=== PATIENT | female | born 1945 | race Caucasian/White ===

== ENCOUNTER 2017-10-06 10:10 | Inpatient (IN) | payer MEDICARE, OTHER, SELFPAY ==
[2017-10-06 10:13] VITALS: BP 154/49; PULSE 65; RESP 18; TEMP 36.4; O2SAT 97; BMI 41.3
--- NOTE | 2017-10-06 10:35 | MRI_ITS ---
STUDY: MRI LUMBAR SPINE WITHOUT CONTRAST REASON FOR EXAM: Female, 72 years old. back pain -- pain low back and rt leg , can't move rt leg. TECHNIQUE: Standardized fat and water weighted pulse sequences were obtained in the sagittal and axial planes. COMPARISON: None FINDINGS: T12-L1: There is mild disc space narrowing and endplate spondylosis. There is no significant disc herniation, spinal canal or foramina stenosis.. Normal lumbar lordosis. There is no substantial scoliosis. Normal conus medullaris that terminates at the L1 L1-2: There is minimal disc space narrowing and endplate spondylosis. There is no significant disc herniation, spinal canal or foramina stenosis.. There is mild facet arthropathy. L2-3: There is moderate disc space narrowing and endplate spondylosis. There is a moderate disc bulge asymmetric to the left with moderate left foraminal stenosis. There is no significant central canal or right foraminal stenosis. There is mild facet arthropathy. L3-4: There is moderate disc space narrowing and endplate spondylosis. There is a moderate disc osteophyte complex asymmetric to the right with moderate right foraminal stenosis. There is mild central canal and mild left foraminal stenosis. There is mild facet arthropathy. L4-5: There is minimal disc space narrowing and endplate spondylosis. There is a mild disc bulge and facet arthropathy with severe central canal stenosis. There is mild bilateral foraminal stenosis. L5-S1: There is a mild disc space narrowing and endplate spondylosis. There is a disc osteophyte complex asymmetric to the left with moderate left foraminal stenosis. There is moderate facet arthropathy without significant central canal or right foraminal stenosis. Normal visualized sacral ala. Normal visualized paraspinous soft tissue structures. MRI/Spine Lumbar (Routine) IMPRESSION: L2/L3: Moderate left foraminal stenosis. L3/L4: Moderate right foraminal stenosis. L4/L5: Severe central canal stenosis. L5/S1: Moderate left foraminal stenosis. Electronically Signed: Raul Craig MD at 12:31 EST Tel , Service support ,
[2017-10-06] MEDS: Ondansetron 4 MG/2 ML Vial IV (11:15)
[2017-10-06] MEDS: HYDROmorphone 1 MG/ML Syringe IV (11:18)
[2017-10-06] MEDS: LORazepam 2 MG/ML Syringe 1 MG IV (11:18)
[2017-10-06] MEDS: 0.9% Normal Saline 1,000 ML 150 ML IV (11:18)
[2017-10-06 11:36] LABS: Absolute Lymphocyte Count 1.18 X10^3/ul (0.83-4.51); Basophil# 0.03 X10^3/uL; Basophil% 0.5 % (0-1); Eosinophil# 0.19 X10^3/uL; Eosinophils% 3.1 % (0-5); Hematocrit 34.2 % (37-47); Hemoglobin 10.8 g/dl (12.0-15.0); Lymphocyte # 1.18 X10^3/ul (4.0); Mean Corp Hgb Conc 31.6 g/gl (32-36); Mean Corpuscular Hgb 30.3 pg (27.0-32.0); Mean Corpuscular Volume 95.8 fL (81-99); Mean Platelet Vol. 11.5 fl (6.2-12.0); Monocyte# 0.76 X10^3/uL; Monocyte% 12.3 % (0-10); Neutrophil # 4.03 X10^3/uL (2.7-7.7); Neutrophil % 64.9 % (47-70); Platelet Count 150 K/mm3 (150-450); RBC Distribution Width CV 13.2 % (11.6-14.6); Red Blood Count 3.57 M/mm3 (4.2-5.4); White Blood Count 6.2 K/mm3 (4.4-11.0)
[2017-10-06 11:39] LABS: POSITIVE COUNT NO; POSITIVE DIFFERENTIAL NO; POSITIVE MORPHOLOGY NO
[2017-10-06 11:46] LABS: Anion Gap 11 (5-15); BUN 47 mg/dL (7-18); BUN/Creat Ratio 20.9 RATIO (10-20); Calcium,Total 9.1 mg/dL (8.5-10.1); Chloride 108 mmol/L (98-107); Creatinine, Serum 2.25 mg/dL (0.55-1.02); EST Glomerular Filtration Rate 23 mL/min (>60); Est Glom Filt Rate - Afr Amer 28 mL/min (>60); Estimated Creatinine Clearance 21.98 ml/min; Glucose 177 mg/dL (70-110); Sodium Level 143 mmol/L (136-145)
[2017-10-06 13:00] VITALS: BP 170/64; PULSE 71; RESP 16; O2SAT 97
[2017-10-06 13:17] LABS: Bacteria 0 SEEN /hpf (None Seen); Mucous, Urine 0 SEEN /hpf (<or=2+); Red Blood Cells-Urine 0 SEEN /hpf (0-5); White Blood Cells 0 SEEN /hpf (0-5)
[2017-10-06 13:20] LABS: Color, Urine Yellow (Yellow); Glucose, Dipstick 100 mg/dl (Normal); Ketone-Dipstick Negative (Negative); Leukocyte Esterase-Dipstick Negative /ul (Negative); Nitrite-Dipstick Negative (Negative); Occult Blood-Urine 50 /ul (Negative); Protein-Dipstick 500 mg/dl (Negative); Specific Gravity, Urine 1.015 (1.002-1.030); Urine Bilirubin Dipstick Negative (Negative); Urine Clarity Sl. Cloudy (Clear); Urine Urobilinogen Normal (Normal)
[2017-10-06 13:29] LABS: Amorphous Sediment 1+; Squamous Epithelial Cells - UA 0-5 SEEN /hpf (5-10)
--- NOTE | 2017-10-06 13:29 | ED.VISSUMM ---
- ER Visit Summary Date of Service: 10/06/17 Chief Complaint: [Back pain] History of Present Illness: The patient is a 72 F [presents the emergency department she complained of back pain that started yesterday. Patient states she woke up with the pain. She describes it in her left back radiating down her left leg. Patient was seen by a chiropractor yesterday and diagnosed with sciatica. Patient states that now having a hard time moving her right leg. Patient denies weakness in the extremities. She denies change in bowel or bladder function. Patient was unable to walk on her own today and her daughter had a very difficult time getting her to the bathroom. Patient brought in by EMS. Patient does have a history of prior sciatica however she has not had prior back surgeries.] Physical Examination: [HEALONSO-PERRLAJAZZYMI. Cranial nerves II through XII grossly intact. TMs clear. Mucous membranes moist. No adenopathy. Cardiovascular-regular rate and rhythm without murmur or ectopy Lungs-clear to auscultation, chest wall stable without crepitus or subcu emphysema Abdomen-normoactive bowel sounds, soft, nontender, no rebound or rigidity, no peritoneal signs. Back exam-patient has tenderness palpation over lumbar paraspinal musculature on the left and into the left piriformis region and left buttocks. Patient has a positive straight leg raise at 30? on the left. Deep tendon reflexes are plus 2 out of 4 bilaterally at the patella and Achilles bilaterally. Patient has normal sensation to light touch. Extremities-intact ?4, normal range of motion, normal pulses, atraumatic] Test Results: [CBC with differential was unremarkable. Chemistries unremarkable. BUN was 47, creatinine 2.25. Urinalysis is pending. MRI of the lumbar spine obtained was read by radiology as L2-L3 moderate left foraminal stenosis, L3-L4 moderate right foraminal stenosis, L4-L5 severe central canal stenosis, L5-S1 moderate left foraminal stenosis] Emergency Department Course and Treatment: [Patient was medicated with Dilaudid and Zofran] Treatment Plan: [She will be admitted for pain control.] Disposition: [Admit] Impression: [Intractable back pain/sciatica Inability to ambulate] This note was generated with [employer] software. It may contain incorrect words, spelling, and punctuation that were not noted in review of the chart prior to signing ED Disposition - Plan for ED Patient: Chief Complaint: Back Referrals: Renny Huffman MD [Primary Care Provider] -
[2017-10-06 14:36] VITALS: BP 155/57; PULSE 74; RESP 16; O2SAT 92
[2017-10-06 15:20] VITALS: BMI 40.3
--- NOTE | 2017-10-06 15:23 | PCM.HP.STD ---
Problem List (1) Acute midline low back pain with sciatica Status: Acute (2) Hyperlipidemia associated with type 2 diabetes mellitus Status: Chronic (3) Hypertension, essential Status: Chronic (4) Hypothyroid Status: Chronic Qualifiers: Comment: TSH elevated at 4.98. Reports taking medication as directed. Does not miss doses. Will increase by 1/2 tablet each week, then recheck labs. (5) Controlled type 2 diabetes mellitus with chronic kidney disease, without long-term current use of insulin Status: Acute (6) Morbid obesity with BMI of 40.0-44.9, adult Status: Chronic History of Present Illness Date of Admission: 10/06/17 Chief Complaint: Acute onset of lower back pain with left-sided radiation The patient is a 72 year old F with multiple comorbidities as listed above came to ER with sudden onset of lumbar back pain that started yesterday. Her back pain is shooting down to left buttock up to left knee. She is not able to stand up or walk. She denies any chronic back pain or history of sciatica. She also has weakness of right leg and can bend it but not able to stand or walk on it. She denies fever, chills, lower urinary tract symptoms, abdominal pain or alteration of bowel habit. In ER, she had lumbar spine MRI done which shows severe central canal stenosis at L4-L5 and moderate foraminal stenosis. [] Past Medical History Past Medical History (Chronic Problems): Chronic Problems (Last Reviewed 09/30/17 @ 08:35 by Ambar Isbell) Morbid obesity with BMI of 40.0-44.9, adult (Chronic) Hyperlipidemia associated with type 2 diabetes mellitus (Chronic) Hypertension, essential (Chronic) Hypothyroid (Chronic) TSH elevated at 4.98. Reports taking medication as directed. Does not miss doses. Will increase by 1/2 tablet each week, then recheck labs. Allergies amlodipine besylate [From Norvas] Allergy (Verified 10/06/17 10:16) Unknown Sulfa (Sulfonamide Antibiotics) Allergy (Verified 10/06/17 10:16) Unknown Home Medications: Ambulatory Orders Medication Instructions Recorded Aspirin [Adult Low Dose Aspirin EC] 81 mg PO DAILY 03/12/16 Atorvastatin Calcium [Lipitor] 10 mg PO QHS 03/12/16 Ergocalciferol [Vitamin D] 50,000 unit PO QMONTH 03/12/16 Furosemide [Lasix] 40 mg PO BID 03/12/16 Lorazepam [Ativan] 1 mg PO DAILY 03/12/16 Losartan Potassium [Cozaar] 100 mg PO DAILY 03/12/16 Magnesium Oxide [Mag-Ox 400] 400 mg PO BID 03/12/16 Metoprolol Tartrate [Lopressor 100 mg PO BID 03/12/16 (Beta Litzy)] blood sugar diagnostic strips See Dose Instructions .ROUTE 09/22/17 .MEDSUPPLY #20 ea insulin aspart 100 unit/mL 32 unit SC TID ml 09/22/17 subcutaneous pen insulin detemir 100 unit/mL (3 mL) 27 unit SC QHS ml 09/22/17 subcutaneous pen Levothyroxine [Synthroid] 137 mcg PO DAILY 10/06/17 Smoking Status: Former smoker - *Family History Paternal Family History: Family History (Last Reviewed 09/30/17 @ 08:35 by Ambar Isbell) Father Diabetes Mother CVA (cerebral vascular accident) Throat cancer Brother CAD (coronary artery disease) Myocardial infarction Diabetes Sister Kidney disease Diabetes Myocardial infarction Bright's disease Unknown Kidney disease History Items: No pertinent history Review of Systems Constitutional: Reports: Weakness, Fatigue. Denies: Chills, Fever, Weight Change HEENT: Denies: Head Aches, Sinus Congestion, Sinus Drainage Cardiovascular: Denies: Chest Pain, Palpitations Respiratory: Denies: Cough, Shortness of breath at rest, Sputum production Gastrointestinal: Denies: Abdominal Pain, Nausea, Vomiting Genitourinary: Denies: Dysuria Musculoskeletal: Reports: Joint Pain, Joint stiffness, Joint Tenderness, Leg Pain, Muscle pain Skin: Denies: Rash, Wounds Neurological: Reports: Balance problems. Denies: Focal weakness, Numbness, Tingling Psychiatric: Denies: Anxiety, Depression, Homicidal Ideations, Suicidal Ideations Hematologic/ Lymphatic: Denies: Easy Bruising, Easy Bleeding VTE Information - Inpt Only VTE Present on Admission: No VTE Mechan Device Prophylaxis: SCD's VTE Pharm Prophylaxis ordered?: Yes Patient Problems: Active and Suspected Problems (Last Reviewed 09/30/17 @ 08:35 by Ambar Isbell) Acute midline low back pain with sciatica (Acute) - Physical Exam General: Alert, Oriented x3, Cooperative HEENT: Atraumatic, PERRLA, EOMI, Normocephalic Oral: Moist Mucosa Neck: Supple, No JVD, Negative Carotid Bruits Lungs: Clear to auscultation, No rhonchi, No wheeze, No rales, Diminished Cardiovascular: Regular rate, Regular Rhythm, Normal S1, Normal S2, No murmurs Abdomen: Bowel Sounds Present, Soft, Non Tender, Non-Distended Extremities: Capillary Refill Less than 3 Seconds, Edema Skin: No rashes, No breakdown Musculoskeletal: Arthritic Changes, Tenderness - Tenderness present over left lower lumbar spine and parasacral region. Muscle strength is 3/5 in both lower extremities. Sacral region Neurological: Cranial nerves II-XII grossly intact, Sensory exam intact to light touch and pain, - - Deep tendon reflex 2/4 and symmetrical at knees and ankle joint Psych/Mental Status: Normal Affect, Appropriate Vital Signs Temp Pulse Resp BP Pulse Ox 97.6 F L 74 16 155/57 H 92 10/06/17 10:13 10/06/17 14:36 10/06/17 14:36 10/06/17 14:36 10/06/17 14:36 Assessment/Plan Active and Suspected Problems (Last Reviewed 09/30/17 @ 08:35 by Ambar Isbell) Acute midline low back pain with sciatica (Acute) The patient is a 72 year old F with multiple comorbidities as listed above came to ER with sudden onset of lumbar back pain that started yesterday. Her back pain is shooting down to left buttock up to left knee. She is not able to stand up or walk. She denies any chronic back pain or history of sciatica. She also has weakness of right leg and can bend it but not able to stand or walk on it. She denies fever, chills, lower urinary tract symptoms, abdominal pain or alteration of bowel habit. In ER, she had lumbar spine MRI done which shows severe central canal stenosis at L4-L5 and moderate foraminal stenosis. 1. Acute onset of left-sided lumbar spine back pain with sciatica on left lower extremity, most probably due to degenerative joint disease and severe central canal stenosis: Patient is being admitted [facility] floor for pain control and functional debility. Pain control. Muscle relaxant. PT and OT ordered. Patient might need SNF placement if there is no improvement. 2. Diabetes mellitus type 2, uncontrolled: Accu-Chek before meals and at bedtime and cover with NovoLog sliding scale. 3. CKD stage IV: Her baseline creatinine runs between 2.16-2.28. Currently creatinine is 2.25 with estimated GFR 21 mL/min. avoid nephrotoxic medications. On IV fluid normal saline. 4. Other comorbidities include hypothyroidism, hypertension, dyslipidemia, morbid obesity: BMI is 40 with 257 pounds. Weight loss counseling and physical therapy commended. DVT prophylaxis: On Lovenox 30 mg subcu daily and bilateral SCDs. CODE STATUS: Patient has living will at her home. She also claimed that she has living will in our medical record but I cannot find it. She is not sure about the CODE STATUS right now. Patient was advised to get a copy of her living will from home. About 15 minutes time spent in explaining the CODE STATUS. Clinical Impression(s) from Imaging Studies Lumbar Spine MRI 10/06/17 10:35 IMPRESSION: L2/L3: Moderate left foraminal stenosis. L3/L4: Moderate right foraminal stenosis. L4/L5: Severe central canal stenosis. L5/S1: Moderate left foraminal stenosis. Electronically Signed: Raul Craig MD at 12:31 EST Tel , Service support , Laboratory Results 10/06/17 11:23: WBC 6.2, RBC 3.57 L, Hgb 10.8 L, Hct 34.2 L, MCV 95.8, MCH 30.3, MCHC 31.6 L, RDW 13.2, RDW Differential 46.0 H, Plt Count 150, MPV 11.5, Immature Gran % (Auto) 0.200, Neut % (Auto) 64.9, Lymph % (Auto) 19.0, [place] % (Auto) 12.3 H, Eos % (Auto) 3.1, Baso % (Auto) 0.5, Absolute Neuts (auto) 4.0, Absolute Lymphs (auto) 1.18, Total Counted Not Reportable 10/06/17 11:23: Sodium 143, Potassium 4.0, Chloride 108 H, Carbon Dioxide 24.0, Anion Gap 11, BUN 47 H, Creatinine 2.25 H, Estim Creat Clear Calc 21.98, Est GFR (MDRD) Af Amer 28 L, Est GFR (MDRD) Non-Af 23 L, BUN/Creatinine Ratio 20.9 H, Glucose 177 H, Calcium 9.1 10/06/17 13:03: Urine Color Yellow, Urine Clarity Sl. Cloudy, Urine pH 6.0, Ur Specific [place] 1.015, Urine Protein 500 H, Urine Glucose (UA) 100 H, Urine Ketones Negative, Urine Occult Blood 50 H, Urine Nitrite Negative, Urine Bilirubin Negative, Urine Urobilinogen Normal, Ur Leukocyte Esterase Negative, Urine RBC 0 SEEN, Urine WBC 0 SEEN, Ur Squamous Epith Cells 0-5 SEEN, Amorphous Sediment 1+, Urine Bacteria 0 SEEN, Urine Mucus 0 SEEN Code Visit Inpatient E&M: 77346 Init Hosp L3 Procedures: 62363 Advncd Care Plan 30 Min
[2017-10-06 15:28] VITALS: BP 165/57; PULSE 66; RESP 18; TEMP 36.9; O2SAT 94
--- NOTE | 2017-10-06 15:41 | HP.PCM_ITS ---
Problem List (1) Acute midline low back pain with sciatica Status: Acute (2) Hyperlipidemia associated with type 2 diabetes mellitus Status: Chronic (3) Hypertension, essential Status: Chronic (4) Hypothyroid Status: Chronic Qualifiers: Comment: TSH elevated at 4.98. Reports taking medication as directed. Does not miss doses. Will increase by 1/2 tablet each week, then recheck labs. (5) Controlled type 2 diabetes mellitus with chronic kidney disease, without long-term current use of insulin Status: Acute (6) Morbid obesity with BMI of 40.0-44.9, adult Status: Chronic History of Present Illness Date of Admission: 10/06/17 Chief Complaint: Acute onset of lower back pain with left-sided radiation The patient is a 72 year old F with multiple comorbidities as listed above came to ER with sudden onset of lumbar back pain that started yesterday. Her back pain is shooting down to left buttock up to left knee. She is not able to stand up or walk. She denies any chronic back pain or history of sciatica. She also has weakness of right leg and can bend it but not able to stand or walk on it. She denies fever, chills, lower urinary tract symptoms, abdominal pain or alteration of bowel habit. In ER, she had lumbar spine MRI done which shows severe central canal stenosis at L4-L5 and moderate foraminal stenosis. [] Past Medical History Past Medical History (Chronic Problems): Chronic Problems (Last Reviewed 09/30/17 @ 08:35 by Ambar Isbell) Morbid obesity with BMI of 40.0-44.9, adult (Chronic) Hyperlipidemia associated with type 2 diabetes mellitus (Chronic) Hypertension, essential (Chronic) Hypothyroid (Chronic) TSH elevated at 4.98. Reports taking medication as directed. Does not miss doses. Will increase by 1/2 tablet each week, then recheck labs. Allergies amlodipine besylate [From Norvas] Allergy (Verified 10/06/17 10:16) Unknown Sulfa (Sulfonamide Antibiotics) Allergy (Verified 10/06/17 10:16) Unknown Home Medications: Ambulatory Orders Medication Instructions Recorded Aspirin [Adult Low Dose Aspirin EC] 81 mg PO DAILY 03/12/16 Atorvastatin Calcium [Lipitor] 10 mg PO QHS 03/12/16 Ergocalciferol [Vitamin D] 50,000 unit PO QMONTH 03/12/16 Furosemide [Lasix] 40 mg PO BID 03/12/16 Lorazepam [Ativan] 1 mg PO DAILY 03/12/16 Losartan Potassium [Cozaar] 100 mg PO DAILY 03/12/16 Magnesium Oxide [Mag-Ox 400] 400 mg PO BID 03/12/16 Metoprolol Tartrate [Lopressor 100 mg PO BID 03/12/16 (Beta Litzy)] blood sugar diagnostic strips See Dose Instructions .ROUTE 09/22/17 .MEDSUPPLY #20 ea insulin aspart 100 unit/mL 32 unit SC TID ml 09/22/17 subcutaneous pen insulin detemir 100 unit/mL (3 mL) 27 unit SC QHS ml 09/22/17 subcutaneous pen Levothyroxine [Synthroid] 137 mcg PO DAILY 10/06/17 Smoking Status: Former smoker - *Family History Paternal Family History: Family History (Last Reviewed 09/30/17 @ 08:35 by Ambar Isbell) Father Diabetes Mother CVA (cerebral vascular accident) Throat cancer Brother CAD (coronary artery disease) Myocardial infarction Diabetes Sister Kidney disease Diabetes Myocardial infarction Bright's disease Unknown Kidney disease History Items: No pertinent history Review of Systems Constitutional: Reports: Weakness, Fatigue. Denies: Chills, Fever, Weight Change HEENT: Denies: Head Aches, Sinus Congestion, Sinus Drainage Cardiovascular: Denies: Chest Pain, Palpitations Respiratory: Denies: Cough, Shortness of breath at rest, Sputum production Gastrointestinal: Denies: Abdominal Pain, Nausea, Vomiting Genitourinary: Denies: Dysuria Musculoskeletal: Reports: Joint Pain, Joint stiffness, Joint Tenderness, Leg Pain, Muscle pain Skin: Denies: Rash, Wounds Neurological: Reports: Balance problems. Denies: Focal weakness, Numbness, Tingling Psychiatric: Denies: Anxiety, Depression, Homicidal Ideations, Suicidal Ideations Hematologic/ Lymphatic: Denies: Easy Bruising, Easy Bleeding VTE Information - Inpt Only VTE Present on Admission: No VTE Mechan Device Prophylaxis: SCD's VTE Pharm Prophylaxis ordered?: Yes Patient Problems: Active and Suspected Problems (Last Reviewed 09/30/17 @ 08:35 by Ambar Isbell ) Acute midline low back pain with sciatica (Acute) - Physical Exam General: Alert, Oriented x3, Cooperative HEENT: Atraumatic, PERRLA, EOMI, Normocephalic Oral: Moist Mucosa Neck: Supple, No JVD, Negative Carotid Bruits Lungs: Clear to auscultation, No rhonchi, No wheeze, No rales, Diminished Cardiovascular: Regular rate, Regular Rhythm, Normal S1, Normal S2, No murmurs Abdomen: Bowel Sounds Present, Soft, Non Tender, Non-Distended Extremities: Capillary Refill Less than 3 Seconds, Edema Skin: No rashes, No breakdown Musculoskeletal: Arthritic Changes, Tenderness - Tenderness present over left lower lumbar spine and parasacral region. Muscle strength is 3/5 in both lower extremities. Sacral region Neurological: Cranial nerves II-XII grossly intact, Sensory exam intact to light touch and pain, - - Deep tendon reflex 2/4 and symmetrical at knees and ankle joint Psych/Mental Status: Normal Affect, Appropriate Vital Signs Temp Pulse Resp BP Pulse Ox 97.6 F L 74 16 155/57 H 92 10/06/17 10:13 10/06/17 14:36 10/06/17 14:36 10/06/17 14:36 10/06/17 14:36 Assessment/Plan Active and Suspected Problems (Last Reviewed 09/30/17 @ 08:35 by Ambar Isbell ) Acute midline low back pain with sciatica (Acute) The patient is a 72 year old F with multiple comorbidities as listed above came to ER with sudden onset of lumbar back pain that started yesterday. Her back pain is shooting down to left buttock up to left knee. She is not able to stand up or walk. She denies any chronic back pain or history of sciatica. She also has weakness of right leg and can bend it but not able to stand or walk on it. She denies fever, chills, lower urinary tract symptoms, abdominal pain or alteration of bowel habit. In ER, she had lumbar spine MRI done which shows severe central canal stenosis at L4-L5 and moderate foraminal stenosis. 1. Acute onset of left-sided lumbar spine back pain with sciatica on left lower extremity, most probably due to degenerative joint disease and severe central canal stenosis: Patient is being admitted on the [facility] floor for pain control and functional debility. Pain control. Muscle relaxant. PT and OT ordered. Patient might need SNF placement if there is no improvement. 2. Diabetes mellitus type 2, uncontrolled: Accu-Chek before meals and at bedtime and cover with NovoLog sliding scale. 3. CKD stage IV: Her baseline creatinine runs between 2.16-2.28. Currently creatinine is 2.25 with estimated GFR 21 mL/min. avoid nephrotoxic medications. On IV fluid normal saline. 4. Other comorbidities include hypothyroidism, hypertension, dyslipidemia, morbid obesity: BMI is 40 with 257 pounds. Weight loss counseling and physical therapy commended. DVT prophylaxis: On Lovenox 30 mg subcu daily and bilateral SCDs. CODE STATUS: Patient has living will at her home. She also claimed that she has living will in our medical record but I cannot find it. She is not sure about the CODE STATUS right now. Patient was advised to get a copy of her living will from home. About 15 minutes time spent in explaining the CODE STATUS. Clinical Impression(s) from Imaging Studies Lumbar Spine MRI 10/06/17 10:35 IMPRESSION: L2/L3: Moderate left foraminal stenosis. L3/L4: Moderate right foraminal stenosis. L4/L5: Severe central canal stenosis. L5/S1: Moderate left foraminal stenosis. Electronically Signed: Raul Craig MD at 12:31 EST Tel , Service support , Laboratory Results 10/06/17 11:23: WBC 6.2, RBC 3.57 L, Hgb 10.8 L, Hct 34.2 L, MCV 95.8, MCH 30.3 , MCHC 31.6 L, RDW 13.2, RDW Differential 46.0 H, Plt Count 150, MPV 11.5, Immature Gran % (Auto) 0.200, Neut % (Auto) 64.9, Lymph % (Auto) 19.0, [place] % ( Auto) 12.3 H, Eos % (Auto) 3.1, Baso % (Auto) 0.5, Absolute Neuts (auto) 4.0, Absolute Lymphs (auto) 1.18, Total Counted Not Reportable 10/06/17 11:23: Sodium 143, Potassium 4.0, Chloride 108 H, Carbon Dioxide 24.0, Anion Gap 11, BUN 47 H, Creatinine 2.25 H, Estim Creat Clear Calc 21.98, Est GFR (MDRD) Af Amer 28 L, Est GFR (MDRD) Non-Af 23 L, BUN/Creatinine Ratio 20.9 H , Glucose 177 H, Calcium 9.1 10/06/17 13:03: Urine Color Yellow, Urine Clarity Sl. Cloudy, Urine pH 6.0, Ur Specific [place] 1.015, Urine Protein 500 H, Urine Glucose (UA) 100 H, Urine Ketones Negative, Urine Occult Blood 50 H, Urine Nitrite Negative, Urine Bilirubin Negative, Urine Urobilinogen Normal, Ur Leukocyte Esterase Negative, Urine RBC 0 SEEN, Urine WBC 0 SEEN, Ur Squamous Epith Cells 0-5 SEEN, Amorphous Sediment 1+, Urine Bacteria 0 SEEN, Urine Mucus 0 SEEN Code Visit Inpatient E&M: 47712 Init Hosp L3 Procedures: 71568 Advncd Care Plan 30 Min
[2017-10-06 17:01] LABS: Bedside Glucose 141 mg/dL (70-110)
[2017-10-06] MEDS: 0.9% Normal Saline 1,000 ML 100 ML IV (19:08)
[2017-10-06 20:46] VITALS: BP 185/66; PULSE 76; RESP 16; TEMP 37.1; O2SAT 95
[2017-10-06 20:54] VITALS: BP 185/66; PULSE 76
[2017-10-06] MEDS: Magnesium Oxide 400 MG Tablet PO (20:54)
[2017-10-06] MEDS: Atorvastatin Calcium 10 MG Tablet PO (20:54)
[2017-10-06] MEDS: Metoprolol Tartrate 100 MG Tablet PO (20:54)
[2017-10-06] MEDS: Enoxaparin 30 MG/0.3 ML Syringe SC (20:55)
[2017-10-06] MEDS: oxyCODONE 5 MG Tablet PO (21:01)
[2017-10-06] MEDS: LORazepam 1 MG Tablet PO (21:05)
[2017-10-06 21:51] LABS: Bedside Glucose 258 mg/dL (70-110)
[2017-10-07] VITALS (9 sets, daily range): BP systolic 130–189; BP diastolic 50–80; PULSE 64–85; RESP 16–18; TEMP 36.6–37.3; O2SAT 96–98
[2017-10-07] MEDS: oxyCODONE 5 MG Tablet PO ×4 (03:33→22:38)
[2017-10-07] MEDS: Levothyroxine 137 MCG Tablet PO (03:34)
[2017-10-07 07:10] LABS: Anion Gap 10 (5-15); BUN 41 mg/dL (7-18); BUN/Creat Ratio 18.1 RATIO (10-20); Calcium,Total 8.4 mg/dL (8.5-10.1); Chloride 106 mmol/L (98-107); Creatinine, Serum 2.26 mg/dL (0.55-1.02); EST Glomerular Filtration Rate 23 mL/min (>60); Est Glom Filt Rate - Afr Amer 27 mL/min (>60); Estimated Creatinine Clearance 21.88 ml/min; Glucose 167 mg/dL (70-110); Potassium 3.8 mmol/L (3.5-5.1); Sodium Level 140 mmol/L (136-145)
[2017-10-07] MEDS: Losartan Potassium 100 MG Tablet PO (10:02)
[2017-10-07] MEDS: Aspirin E.C. 81 MG Tablet PO (10:02)
[2017-10-07] MEDS: Magnesium Oxide 400 MG Tablet PO ×2 (10:03→22:34)
[2017-10-07] MEDS: Furosemide 40 MG Tablet PO (10:03)
[2017-10-07] MEDS: Metoprolol Tartrate 100 MG Tablet PO ×2 (10:03→22:30)
[2017-10-07] MEDS: Enoxaparin 30 MG/0.3 ML Syringe SC (10:10)
[2017-10-07 11:16] LABS: Bedside Glucose 178 mg/dL (70-110)
[2017-10-07 12:11] LABS: Bedside Glucose 136 mg/dL (70-110)
--- NOTE | 2017-10-07 15:09 | CASEMGMT ---
JAMAL SWEENEY Face to Face with patient for initial transition planning/care coordination assessment. RN PATEL introduced self and role at [facility]. Patient sitting in chair, alert and oriented. Patient willing to participate in assessment and is able to answer all questions appropriately. Care providers, pharmacy, and demographics verified. See link attached. Patient wishes to discharge home. Discussed possible HHC and explained to patient that we will monitor how she does with therapy. Patient states she has no further needs or concerns at this time. CM to follow for discharge planning needs that may arise. Disposition Plan: Patient to discharge home with family support and follow-up plans. Will continue to monitor for need for HHC.
--- NOTE | 2017-10-07 15:53 | PN_ITS ---
<Santos Smith - Last Filed: 10/07/17 15:43> Patient Problems: Active and Suspected Problems (Last Reviewed 09/30/17 @ 08:35 by Ambar Isbell ) Acute midline low back pain with sciatica (Acute) Subjective: Pt has had no improvement in pain. She feels occasional back muscle spasms. Pain radiates from LL back down the left hip, into lateral leg terminating at the left knee. She denies any inciting activity or trauma. She woke up with the pain. She is not interested in pain management or injections. She was able to get on her feet and walk. No change in continence, no saddle paraesthesias. No numbness or tingling in her LE. - Physical Exam General: Alert, Oriented x3, Cooperative HEENT: Atraumatic, PERRLA, EOMI, Normocephalic Neck: Supple, No JVD, Negative Carotid Bruits Lungs: Clear to auscultation, Normal air movement Cardiovascular: Regular rate, No murmurs Abdomen: Bowel Sounds Present, Soft, Non Tender, Obese Extremities: No edema, Capillary Refill Less than 3 Seconds Skin: No rashes, No breakdown Musculoskeletal: No Tenderness to Palpation of Joints or Extremities Neurological: Cranial nerves II-XII grossly intact Psych/Mental Status: Normal Affect, Appropriate Vital Signs Temp Pulse Resp BP Pulse Ox 99.2 F H 85 18 140/80 H 96 10/07/17 09:30 10/07/17 10:03 10/07/17 09:30 10/07/17 09:30 10/07/17 09:30 Oxygen Delivery Method CPAP Weight: 116.8 kg Body Mass Index (BMI) 40.3 Intake and Output for Last 24 Hours 10/05/17 10/06/17 10/07/17 23:59 23:59 23:59 Intake Total 756 / 756 Balance 756 / 756 Laboratory Tests Past 24 Hrs 10/07/17 05:56 Sodium 140 Potassium 3.8 Chloride 106 Carbon Dioxide 24.0 Anion Gap 10 BUN 41 H Creatinine 2.26 H Estim Creat Clear Calc 21.88 Est GFR (MDRD) Af Amer 27 L Est GFR (MDRD) Non-Af 23 L BUN/Creatinine Ratio 18.1 Glucose 167 H Calcium 8.4 L POC Glucose 10/07/17 10/07/17 10/06/17 12:04 10:01 21:07 POC Glucose 136 H 178 H 258 H 10/06/17 16:51 POC Glucose 141 H Assessment/Plan Active and Suspected Problems (Last Reviewed 09/30/17 @ 08:35 by Ambar Isbell ) Acute midline low back pain with sciatica (Acute) 1. Intractable lower back pain with radiculopathy likely 2/2 L4/L5 severe central canal stenosis. Will add muscle relaxer and steroids. Continue PTOT. No symptoms concerning for cauda equina. 2. CKD stage III-IV - IV fluids. Appears to be at baseline. Trend. No NSAIDS. 3. Hypothyroidism - continue synthroid. 4. T2DM - add SSI. continue home regimen and adjust as needed. 5. HTN - elevated - possibly 2/2 severe pain. 6. Morbid obesity - complicating #1. DVT ppx: SCDs DC planning: re-eval in AM. PTOT suggests further skilled. This patient was seen by Santos Smith PA-C under the supervision of Doctor Sandee. <Nicole Ignacio - Last Filed: 10/07/17 17:17> - Physical Exam Vital Signs Temp Pulse Resp BP Pulse Ox 99.1 F 65 18 135/80 H 97 10/07/17 15:30 10/07/17 15:30 10/07/17 15:30 10/07/17 15:30 10/07/17 15:30 Oxygen Delivery Method Room Air Weight: 116.8 kg Body Mass Index (BMI) 40.3 Intake and Output for Last 24 Hours 10/05/17 10/06/17 10/07/17 23:59 23:59 23:59 Intake Total 756 / 756 Balance 756 / 756 Laboratory Tests Past 24 Hrs 10/07/17 05:56 Sodium 140 Potassium 3.8 Chloride 106 Carbon Dioxide 24.0 Anion Gap 10 BUN 41 H Creatinine 2.26 H Estim Creat Clear Calc 21.88 Est GFR (MDRD) Af Amer 27 L Est GFR (MDRD) Non-Af 23 L BUN/Creatinine Ratio 18.1 Glucose 167 H Calcium 8.4 L POC Glucose 10/07/17 10/07/17 10/07/17 16:07 12:04 10:01 POC Glucose 142 H 136 H 178 H 10/06/17 21:07 POC Glucose 258 H Assessment/Plan Patient was seen and examined independently of PA, history, physical exam and assessment as noted above. MRI and imaging reviewed. Labs reviewed and show stable CKD stage IV. Encourage patient to ambulate, continue to work with physical therapy. Meds reviewed, possible discharge in a.m. if improved Code Visit Inpatient E&M: 93323 Subs Hosp L2
[2017-10-07 16:11] LABS: Bedside Glucose 142 mg/dL (70-110)
--- NOTE | 2017-10-07 16:25 | CHAPLAIN ---
Type of Pastoral Visit _x__ Initial Visit ___ Follow-up Visit ___ On-call Visit ___ General Patient Visit ___ Spiritual Assessment ___ Family Conference ___ Bereavement ___ Rapid Response ___ Code Blue ___ Other (describe below) Pastoral Care Referral From _x__ Patient ___ Family ___ Nurse ___ Physician ___ Bicycle Service Technician ___ Parts Department Manager ___ Other (describe below) Sacrament/Intervention _x__ Active listening ___ Anointing ___ Yazidi ___ Bereavement ___ Communion ___ Radha exploration ___ ___ Life review _x__ Prayer ___ Reconciliation ___ Sacrament of Sick ___ Supportive presence ___ Wedding ___ Other (describe below) Pastoral Comments
[2017-10-07] MEDS: Atorvastatin Calcium 10 MG Tablet PO (22:30)
[2017-10-07] MEDS: LORazepam 1 MG Tablet PO (22:34)
[2017-10-07 22:36] LABS: Bedside Glucose 200 mg/dL (70-110)
[2017-10-08] MEDS: Levothyroxine 137 MCG Tablet PO (07:09)
[2017-10-08 07:16] VITALS: BP 140/68; PULSE 92; RESP 16; TEMP 36.6; O2SAT 96
[2017-10-08 07:20] LABS: Bedside Glucose 165 mg/dL (70-110)
[2017-10-08 07:47] VITALS: BP 130/70; PULSE 55; RESP 16; TEMP 36.4; O2SAT 100
[2017-10-08] MEDS: oxyCODONE 5 MG Tablet PO ×2 (08:23→12:28)
[2017-10-08] MEDS: Aspirin E.C. 81 MG Tablet PO (08:23)
--- NOTE | 2017-10-08 09:16 | CASEMGMT ---
Addendum entered by Chiqui Paniagua 10/08/17 09:44: JAMAL SWEENEY spoke with patient regarding HHC. Patient states she prefers [facility]. JAMAL SWEENEY will obtain script for FWW and assist with obtaining FWW for patient from [facility] patient's preferred DME company. Referral made to [facility]. JAMAL SWEENEY will continue to follow patient and plan for a safe discharge. Original Note: Patient up in hallway working with therapy. Therapy suggesting home with HHC. JAMAL SWEENEY will follow-up with patient for preference for HHC company and initiate referral.
[2017-10-08] MEDS: Furosemide 40 MG Tablet PO (09:48)
[2017-10-08] MEDS: Magnesium Oxide 400 MG Tablet PO (09:48)
[2017-10-08] MEDS: Enoxaparin 30 MG/0.3 ML Syringe SC (09:50)
[2017-10-08 09:58] VITALS: PULSE 55
[2017-10-08 11:21] VITALS: BP 130/70; PULSE 56
[2017-10-08] MEDS: Metoprolol Tartrate 100 MG Tablet PO (11:21)
[2017-10-08] MEDS: Losartan Potassium 100 MG Tablet PO (11:23)
[2017-10-08 11:36] LABS: Bedside Glucose 136 mg/dL (70-110)
--- NOTE | 2017-10-08 11:55 | DCINST_ITS ---
- Discharge Diagnoses Current Active Problems: Current Active and Chronic Problems (Last Reviewed 09/30/17 @ 08:35 by Ambar Isbell) Acute midline low back pain with sciatica (Acute) Morbid obesity with BMI of 40.0-44.9, adult (Chronic) You will use the following diet at home:: Calorie/Carbohydrate Controlled ( specify 1200, 1400, etc) - 1800 [place] / day, Cardiac Your food should be the consistency of: Regular Your liquids should be the consistency of: Regular/Thin Discharge Activity: Return to Normal Activity Allergies/Adverse Reactions: Allergies amlodipine besylate [From [facility]] Allergy (Verified 10/06/17 10:16) Unknown Sulfa (Sulfonamide Antibiotics) Allergy (Verified 10/06/17 10:16) Unknown Medications to take at Discharge Aspirin [Adult Low Dose Aspirin EC] 81 mg PO DAILY 03/12/16 Atorvastatin Calcium [Lipitor] 10 mg PO QHS 03/12/16 Ergocalciferol [Vitamin D] 50,000 unit PO QMONTH 03/12/16 Furosemide [Lasix] 40 mg PO BID 03/12/16 Lorazepam [Ativan] 1 mg PO DAILY 03/12/16 Losartan Potassium [Cozaar] 100 mg PO DAILY 03/12/16 Magnesium Oxide [Mag-Ox 400] 400 mg PO BID 03/12/16 Metoprolol Tartrate [Lopressor (beta francisco)] 100 mg PO BID 03/12/16 insulin aspart 100 unit/mL subcutaneous pen 32 unit SC TIDCM ml 09/22/17 insulin detemir 100 unit/mL (3 mL) subcutaneous pen 27 unit SC QHS ml 09/22/17 Levothyroxine [Synthroid] 137 mcg PO DAILY 10/06/17 Cyclobenzaprine [Flexeril] 10 mg PO TID PRN PRN #15 tab 10/08/17 Oxycodone [Oxyir] 5 mg PO Q6H PRN PRN #12 tablet 10/08/17 Prednisone 10 mg PO DAILY #26 tab 10/08/17 The following prescriptions were given: Cyclobenzaprine [Flexeril] 10 mg PO TID PRN PRN #15 tab PRN Reason: Muscle Spasm Oxycodone [Oxyir] 5 mg PO Q6H PRN PRN #12 tablet PRN Reason: Severe Pain (6-06/22) Prednisone 10 mg PO DAILY #26 tab Primary Care Physician: Renny Huffman MD [Primary Care Provider] - Please follow up with your Primary Care Physician in: 1 week Proposed Discharge Date: 10/08/17
--- NOTE | 2017-10-08 12:33 | NURSING ---
I held Pts BP medication because her HR was 55 until I checked with DR. DR Ignacio Okayed administration of BP medications.
[2017-10-08 13:07] VITALS: BP 138/68; PULSE 61; RESP 18; TEMP 36.5; O2SAT 99
--- NOTE | 2017-10-08 14:16 | DS.PCM_ITS ---
Discharge Date and Diagnosis - Problem List Patient Problems: Active and Suspected Problems (Last Reviewed 09/30/17 @ 08:35 by Ambar Isbell ) Acute midline low back pain with sciatica (Acute) Date of Admission: 10/06/17 Date of Discharge: 10/08/17 - Primary Discharge Diagnosis Active and Suspected Problems (Last Reviewed 09/30/17 @ 08:35 by Ambar Isbell ) Intractable lower back pain with radiculopathy 2/2 L4/L5 severe spinal stenosis Debility 2/2 above CKDIII/IV HTN DMt2 Morbid obesity - Secondary Discharge Diagnosis Chronic Problems (Last Reviewed 09/30/17 @ 08:35 by Ambar Isbell) Morbid obesity with BMI of 40.0-44.9, adult (Chronic) Hyperlipidemia associated with type 2 diabetes mellitus (Chronic) Hypertension, essential (Chronic) Hypothyroid (Chronic) TSH elevated at 4.98. Reports taking medication as directed. Does not miss doses. Will increase by 1/2 tablet each week, then recheck labs. Hospital Course and Treatment Imaging Results: MRI/Spine Lumbar (Routine) IMPRESSION: L2/L3: Moderate left foraminal stenosis. L3/L4: Moderate right foraminal stenosis. L4/L5: Severe central canal stenosis. L5/S1: Moderate left foraminal stenosis. Operations: None Procedures: None Summary of Care Provided: Physical exam on day of discharge: General: Resting comfortably NAD Psych: A/Ox3 normal affect HEENT: PEARRLA AT NC Neck: Supple NT CV: RRR no m/t/r/g/h Resp: CTA Abd: [id number] Soft NT no guarding or rigidity Ext: DP2+= no edema Skin: W/D normal turgor Lymph/Heme: No active bleeding or adenopathy Neuro: CN2-12 intact Hospital course: The patient is a 72 year old F who presented to the emergency room with severe intractable left lower back pain that radiated down the lateral aspect of her left hip terminating at the knee. She woke up with the pain and denied any inciting trauma or injury. She was initially unable to stand or walk. She has no numbness or tingling in her lower extremities. She had no saddle paresthesias or change in continence. She was able to ambulate with difficulty and severe pain. She is admitted for pain control. She was started on muscle relaxers as she reported muscle spasms as well as a prednisone and oxycodone. She has significant pain relief following these additional medications. She was able to get up and stand, and walk with help of a walker. She was seen by PT OT and they recommended further skilled however she did not desire placement at this time. She is discharged home with home care she has help at home and was ordered for home skilled therapy. She should follow-up with her PCP in 1-2 weeks. She is discharged home with home care in stable condition. This patient was seen by Santos Smith PA-C under the supervision of Doctor Ignacio. [] Discharge Diet: Low fat/ Low Cholesterol, 1800 Calorie Control Diet, 4000 mg Sodium Diet Discharge Activity: Return to Normal Activity Home Medications: Medications to take at Discharge Aspirin [Adult Low Dose Aspirin EC] 81 mg PO DAILY 03/12/16 Atorvastatin Calcium [Lipitor] 10 mg PO QHS 03/12/16 Ergocalciferol [Vitamin D] 50,000 unit PO QMONTH 03/12/16 Furosemide [Lasix] 40 mg PO BID 03/12/16 Lorazepam [Ativan] 1 mg PO DAILY 03/12/16 Losartan Potassium [Cozaar] 100 mg PO DAILY 03/12/16 Magnesium Oxide [Mag-Ox 400] 400 mg PO BID 03/12/16 Metoprolol Tartrate [Lopressor (beta francisco)] 100 mg PO BID 03/12/16 insulin aspart 100 unit/mL subcutaneous pen 32 unit SC TIDCM ml 09/22/17 insulin detemir 100 unit/mL (3 mL) subcutaneous pen 27 unit SC QHS ml 09/22/17 Levothyroxine [Synthroid] 137 mcg PO DAILY 10/06/17 Cyclobenzaprine [Flexeril] 10 mg PO TID PRN PRN #15 tab 10/08/17 Oxycodone [Oxyir] 5 mg PO Q6H PRN PRN #12 tab 10/08/17 Prednisone 10 mg PO DAILY #26 tab 10/08/17 Following Prescrptions Were Given to Patient: Cyclobenzaprine [Flexeril] 10 mg PO TID PRN PRN #15 tab PRN Reason: Muscle Spasm Oxycodone [Oxyir] 5 mg PO Q6H PRN PRN #12 tab PRN Reason: Severe Pain (6-10/10) Prednisone 10 mg PO DAILY #26 tab Primary Care Physician: Renny Huffman MD [Primary Care Provider] - Please follow up with your Primary Care Physician in: 1 week Disposition: Home Minutes spent on discharge:: 35 Patient Condition:: Stable Meaningful Use Info Meaningful Use Diagnoses (Choose all that apply): None applicable
== END 2017-10-08 14:25 | disposition home or self-care (01) | DRG 552 ==
LOC: ED 11:14 → MS3 14:41
PROVIDERS: Admitting Provider Internal Medicine; Emergency Provider Emergency Medicine; Family Provider Family Medicine; PCP Family Medicine; Visit Provider Internal Medicine
DX: M48.061 Spinal stenosis, lumbar region without neurogenic claudication (principal); E11.22 Type 2 diabetes mellitus with diabetic chronic kidney disease; N18.4 Chronic kidney disease, stage 4 (severe); E11.65 Type 2 diabetes mellitus with hyperglycemia; Z68.41 Body mass index [BMI] 40.0-44.9, adult; I12.9 Hypertensive chronic kidney disease with stage 1 through stage 4 chronic kidney disease, or unspecified chronic kidney disease; M54.16 Radiculopathy, lumbar region; E03.9 Hypothyroidism, unspecified; E66.01 Morbid (severe) obesity due to excess calories; M19.90 Unspecified osteoarthritis, unspecified site; M54.32 Sciatica, left side; Z79.82 Long term (current) use of aspirin; Z79.4 Long term (current) use of insulin
CPT/HCPCS: 36415; 72148; 80048; 81001; 82962; 85025; 97116; 97162; 97166; 97802; 99285; J7030; J7050; A4216; J2405

== ENCOUNTER → 2017-11-11 09:16 | Outpatient (CLI) | payer MEDICARE, OTHER, SELFPAY ==
[2017-11-11 11:00] LABS: AST(SGOT) 27 U/L (15-37); Alanine Aminotransfer ALT/SGPT 21 U/L (13-56); Albumin, Serum 2.8 g/dL (3.2-5.0); Alkaline Phosphatase 67 U/L (45-117); Bilirubin, Direct 0.08 mg/dL (0.00-0.30); Cholesterol 117 mg/dL (200); Globulin 4.1 g/dL (2.2-4.2); High Density Lipoprotein 50 mg/dL; Protein, Total 6.9 g/dL (6.4-8.2); Triglycerides 159 mg/dL; Very Low Density Lipoprotein 32 mg/dL (5-40)
== END ==
PROVIDERS: Family Provider Family Medicine; PCP Family Medicine; Visit Provider Internal Medicine Cardiovascular Disease
DX: E78.5 Hyperlipidemia, unspecified (principal); Z79.899 Other long term (current) drug therapy
CPT/HCPCS: 36415; 80061; 80076

== ENCOUNTER → 2017-11-30 10:16 | Outpatient (CLI) | payer MEDICARE, OTHER, SELFPAY ==
[2017-11-30 11:33] LABS: Albumin, Serum 2.8 g/dL (3.2-5.0); BUN 31 mg/dL (7-18); Calcium,Total 8.5 mg/dL (8.5-10.1); Chloride 105 mmol/L (98-107); Creatinine, Serum 2.22 mg/dL (0.55-1.02); EST Glomerular Filtration Rate 23 mL/min (>60); Est Glom Filt Rate - Afr Amer 28 mL/min (>60); Glucose 186 mg/dL (74-106); Phosphorus 3.2 mg/dL (2.5-4.9); Potassium 3.7 mmol/L (3.5-5.1); Sodium Level 141 mmol/L (136-145)
[2017-11-30 11:34] LABS: Hemoglobin A1c 9.1 % (4.2-6.3)
[2017-11-30 11:39] LABS: ALB/GLOB Ratio 0.6 RATIO (0.9-2.4); AST(SGOT) 27 U/L (15-37); Alanine Aminotransfer ALT/SGPT 16 U/L (13-56); Albumin, Serum 2.7 g/dL (3.2-5.0); Alkaline Phosphatase 85 U/L (45-117); Anion Gap 10 (5-15); BUN 30 mg/dL (7-18); BUN/Creat Ratio 13.8 RATIO (10-20); Calcium,Total 8.5 mg/dL (8.5-10.1); Chloride 105 mmol/L (98-107); Cholesterol 92 mg/dL (200); Creatinine, Serum 2.18 mg/dL (0.55-1.02); EST Glomerular Filtration Rate 24 mL/min (>60); Est Glom Filt Rate - Afr Amer 29 mL/min (>60); Globulin 4.4 g/dL (2.2-4.2); Glucose 190 mg/dL (74-106); High Density Lipoprotein 31 mg/dL; Potassium 3.7 mmol/L (3.5-5.1); Protein, Total 7.1 g/dL (6.4-8.2); Sodium Level 141 mmol/L (136-145); Thyroid Stim Hormone (TSH) 4.24 uIU/mL (0.358-3.74); Triglycerides 186 mg/dL; Very Low Density Lipoprotein 37 mg/dL (5-40)
[2017-11-30 11:54] LABS: Protein, Urine (Random) 387.9 mg/dL (<11.9); Protein:Creat Ratio 3403 mg/g CRE (0-200)
== END ==
PROVIDERS: Nurse Practitioner; Family Provider Family Medicine; PCP Family Medicine; Visit Provider Internal Medicine Nephrology
DX: N18.4 Chronic kidney disease, stage 4 (severe) (principal); E11.22 Type 2 diabetes mellitus with diabetic chronic kidney disease
CPT/HCPCS: 36415; 80053; 80061; 80069; 82570; 83036; 84156; 84443

== ENCOUNTER → 2017-12-28 14:36 | Outpatient (CLI) | payer MEDICARE, OTHER, SELFPAY ==
--- NOTE | 2017-12-28 14:38 | ECHOD_ITS ---
Reason For Study: CHF Procedure This was a 2D Doppler, Color Flow transthoracic echocardiogram. Exam performed in department. Left Ventricle Normal LV size. Mild concentric left ventricular hypertrophy. The estimated ejection fraction is 60 %. Transmitral diastolic flow velocities suggest moderate (stage 2) diastolic dysfunction (pseudonormal pattern). Basal inferoseptal: Hypokinetic. The rest of the wall segments are normal. Right Ventricle Normal RV size. Normal systolic function. Atria The left atrium is mildly enlarged. Normal right atrium. Mitral Valve Normal mitral valve. Mild-Moderate (1-2+) eccentric mitral valve insufficiency. Tricuspid Valve Normal tricuspid valve. Moderate (2+) tricuspid valve insufficiency. Pulmonary artery systolic pressure is 65 mmHg. Moderate pulmonary hypertension. Aortic Valve Mild focal aortic valve calcification. Pulmonic Valve Normal pulmonic valve. Great Vessels Normal aortic root. The pulmonary artery is normal size. Normal inferior vena cava. Pericardium/Pleural No pericardial effusion. Medication 22 gauge I.V. with prn adaptor inserted into right arm. Diluted definity 3ml given slow IV push to enhance endocardial definition. MMode/2D Measurements & Calculations LVIDd: 5.0 cm IVSd: 1.2 cm Ao root diam: 2.9 cm LVIDs: 4.0 cm LVPWd: 1.3 cm RVDd: 4.2 cm FS: 20.9 % LAV(MOD-bp): 77.6 ml EDV(MOD-sp4): 107.2 ml EDV(MOD-sp2): 130.1 ml LAV(MOD-bp) Indexed: 33.6 ml/m2 ESV(MOD-sp4): 45.2 ml EF(MOD-sp2): 58.5 % LAV(MOD-sp2): 63.0 ml EF(MOD-sp4): 57.8 % LAV(MOD-sp4): 85.5 ml SV(MOD-sp4): 62.0 ml SV(MOD-sp2): 76.2 ml LA A4 area: 25.8 cm2 RA A4 area: 18.2 cm2 Doppler Measurements & Calculations MV E max fanta: 104.6 cm/sec Ao V2 max: 119.7 cm/sec LV V1 max: 80.8 cm/sec MV A max fanta: 62.8 cm/sec Ao max P.7 mmHg LV V1 max P.6 mmHg MV E/A: 1.7 PA V2 max: 91.3 cm/sec TR max fanta: 384.8 cm/sec TR max P.4 mmHg Interpretation Summary Normal LV size. Mild concentric left ventricular hypertrophy. The estimated ejection fraction is 60 %. Transmitral diastolic flow velocities suggest moderate (stage 2) diastolic dysfunction (pseudonormal pattern). Mild-Moderate (1-2+) eccentric mitral valve insufficiency. Moderate pulmonary hypertension. Compared with previous the pulmonary pressures are higher Ordering Physician: Morgan Fields Referring Physician: FRANKIE REYES Performed By: Jana Leger, FRANTZ, RVT
[2017-12-28 17:11] LABS: Anion Gap 10 (5-15); BUN 40 mg/dL (7-18); BUN/Creat Ratio 17.5 RATIO (10-20); Calcium,Total 9.1 mg/dL (8.5-10.1); Chloride 104 mmol/L (98-107); Creatinine, Serum 2.29 mg/dL (0.55-1.02); EST Glomerular Filtration Rate 22 mL/min (>60); Est Glom Filt Rate - Afr Amer 27 mL/min (>60); Glucose 103 mg/dL (74-106); Potassium 3.7 mmol/L (3.5-5.1); Sodium Level 142 mmol/L (136-145)
== END ==
PROVIDERS: Family Provider Family Medicine; PCP Family Medicine; Visit Provider Internal Medicine Cardiovascular Disease
DX: I50.9 Heart failure, unspecified (principal); I25.10 Atherosclerotic heart disease of native coronary artery without angina pectoris
CPT/HCPCS: 36415; 80048; 93306; Q9957; A4216; C8929

== ENCOUNTER → 2018-02-18 12:48 | Outpatient (CLI) | payer MEDICARE, OTHER, SELFPAY ==
--- NOTE | 2018-02-18 12:48 | DT_ITS ---
This patient was seen during an EMR downtime February 14, 2018 - February 21, 2018. This patient may have a combination of paper and electronic documentation or all paper documentation. All documentation is viewable within the e-chart portion of [employer] for each patient visit.
== END ==
PROVIDERS: Family Provider Family Medicine; PCP Family Medicine; Visit Provider Family Medicine
DX: R22.31 Localized swelling, mass and lump, right upper limb (principal)
CPT/HCPCS: 93971